=== PATIENT | male | born 1950 | race Caucasian/White ===

== ENCOUNTER 2022-03-23 01:22 | Emergency (ER) | payer OTHER ==
[~2022-03-23] VITALS: Ht 172.7 cm; Wt 68.0 kg
[2022-03-23 01:22] VITALS: BP 133/97
--- NOTE | 2022-03-23 01:34 | NUR ---
PT BIBA BLS ER BED 9
--- NOTE | 2022-03-23 01:57 | NUR ---
PT TAKEN TO CT VIA [facility]
--- NOTE | 2022-03-23 02:15 | NUR ---
PT RETURNED FROM CT VIA [facility]
--- NOTE | 2022-03-23 02:16 | NUR ---
ER AT BEDSIDE
--- NOTE | 2022-03-23 02:16 | NUR ---
71 YO M ROYAL FROM [facility] WITH C/C OF FALL XYESTERDAY AT 2PM. FALL UNWITNESSED, FOUND RT SIDE LYING. STAFF UNAWARE OF HOW PT FELL. PT ON BLOOD THINNERS. COMPLAINT OF H/A. PT UNDER EVAN CARE, SENT TO HAVE HEAD CT. PT'S SPEECH UNCOMPREHENDABLE, THIS IS BASELINE PER EMS. HX:SEIZURES, STROKE AFFETCING ET SIDE, ENCEPHALOPATHY, DYSPHAGIA, DM 2, SCHIZO NKA
--- NOTE | 2022-03-23 07:20 | NUR ---
transfer of care report given to shantal cotto
--- NOTE | 2022-03-23 08:56 | NUR ---
PT PROVIDED WITH BREAKFAST
--- NOTE | 2022-03-23 09:25 | NUR ---
called [facility], spoke with Janice SOLITARIO. pt will be picked up by transport and returned to facility.
[2022-03-23 10:06] VITALS: BP 126/70
--- NOTE | 2022-03-23 10:08 | NUR ---
Patient discharged with v/s stable. Written and verbal after care instructions given and explained. Patient verbalized understanding. Ambulatory with steady gait. All questions addressed prior to discharge. Advised to follow up with PMD.
== END 2022-03-23 10:08 | disposition home or self-care (01) ==
LOC: MED 01:22
DX: S09.90XA Unspecified injury of head, initial encounter (principal); W18.30XA Fall on same level, unspecified, initial encounter; Y93.89 Activity, other specified; Y92.89 Other specified places as the place of occurrence of the external cause; Y99.8 Other external cause status
CPT/HCPCS: 70450; 72125; 99285